=== PATIENT | female | born 1965 | race Caucasian/White ===

== ENCOUNTER 2024-12-13 13:46 | Outpatient (CLI) | payer OTHER, SELFPAY ==
--- NOTE | ~2024-12-13 | US_ITS ---
US soft tissue head and neck 12/13/2024 14:08 Indication: Palpable areas bilateral neck Procedure: Soft tissue ultrasound of the neck in the areas of palpable concern Comparison: No prior studies for comparison. Findings: In the right submandibular gland there is a 6 mm cyst. In the left neck there is a normal-appearing 11 mm lymph node with fatty hilum, benign. Impression: 1: Benign findings bilaterally including a 6 mm cyst in the right fibular gland and a normal-appearing 11 mm lymph node in the left neck. No suspicious masses are identified. Reviewed, dictated and finalized at location O. Impression: 1: Benign findings bilaterally including a 6 mm cyst in the right fibular gland and a normal-appearing 11 mm lymph node in the left neck. No suspicious masses are identified.
== END 2024-12-13 13:47 | disposition home or self-care (01) ==
PROVIDERS: PCP Family Medicine; Visit Provider Student in an Organized Health Care Education/Training Program
DX: K11.6 Mucocele of salivary gland (principal)
CPT/HCPCS: 76536